=== PATIENT | male | born 1945 | race Caucasian/White ===

== ENCOUNTER → 2018-01-06 16:29 | Outpatient (CLI) | payer MEDICARE, SELFPAY ==
[2018-01-06 18:40] LABS: BUN Creatinine Ratio 21.1 (6-22); Blood Urea Nitrogen 19 mg/dL (9-20); Estimated Glomerular Filt Rate > 60.0 mL/min (>60)
== END ==
PROVIDERS: PCP Internal Medicine; Visit Provider Otolaryngology Facial Plastic Surgery
DX: H90.5 Unspecified sensorineural hearing loss (principal); H91.21 Sudden idiopathic hearing loss, right ear
CPT/HCPCS: 36415; 82565; 84520

== ENCOUNTER → 2018-01-14 09:25 | Outpatient (CLI) | payer MEDICARE, SELFPAY ==
--- NOTE | 2018-01-14 | DI.MRI.S_ITS ---
PROCEDURE: MR BRAIN (IAC) WWO CON INDICATIONS: Unspecified sensorineural hearing loss TECHNIQUE: Noncontrast sagittal T1 spin echo, axial FLAIR, axial gradient echo, axial diffusion and ADC through the brain. Axial thin-slice 3D CISS, coronal TruFISP, axial T1 spin echo with fat saturation through the internal auditory canals. After the administration of contrast, thin slice axial and coronal T1 spin echo with fat saturation through the internal auditory canals, and axial T1 spin echo with fat saturation through the brain. COMPARISON: None. FINDINGS: Image quality: Excellent. Cranial nerves: No cerebellopontine angle masses. Visualized cranial nerves demonstrate no areas of abnormal enhancement, signal or mass lesions. CSF spaces: Ventricles are normal in size and shape. No extra-axial fluid collections. Basal cisterns are patent. Brain: No intracranial bleeds or mass effects. Jean-white matter interface is intact. No abnormal intracranial enhancement. Diffusion weighted images demonstrate no acute ischemic insults. Brainstem appears normal. Normal intravascular flow voids are present. Skull and face: Calvarial marrow signal is normal. Orbits appear normal. Sinuses: Sinuses demonstrate mild scattered maxillary, ethmoid frontal and sphenoid sinus mucosal thickening. Small mucous retention cyst versus polyp is present in the right maxillary sinus. There is prominent fluid is present within the right mastoid air cells. IMPRESSION: 1. No visualized abnormal signal, enhancement or mass lesion within the cranial nerves. 2. Prominent fluid within the right mastoid air cells. Recommend correlation potential mastoiditis. Dictated by: Lynn Stoddard M.D. on 01/14/2018 at 15:47 Approved by: Lynn Stoddard M.D. on 01/14/2018 at 15:54
== END ==
PROVIDERS: PCP Internal Medicine; Visit Provider Otolaryngology Facial Plastic Surgery
DX: H91.21 Sudden idiopathic hearing loss, right ear (principal)
CPT/HCPCS: 70553; A9579